=== PATIENT | female | born 2000 | race Native Hawaiian/Other Pacific Islander ===

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

== ENCOUNTER 2021-09-25 14:39 | Outpatient (CLI) | payer OTHER | END 2021-09-25 22:28 | disposition home or self-care (01) | LOC: LAB 14:39 | PROVIDERS: ATTEND Nurse Practitioner Family | DX: N30.01 Acute cystitis with hematuria (principal) | CPT/HCPCS: 87077; 87086; 87088; 87186 ==